=== PATIENT | male | born 1965 | race Caucasian/White ===

== ENCOUNTER 2024-04-25 12:14 | Emergency (ER) | payer MEDICARE, OTHER ==
[~2024-04-25] VITALS: Ht 182.9 cm; Wt 108.9 kg
[2024-04-25] MEDS ORDERED: Tetracaine HCl/Pf 0.5% Opth Soln 4 ml LEFTEYE ONE (12:50)
[2024-04-25] MEDS ORDERED: Fluorescein Sod 1MG Opth Strips LEFTEYE ONE (12:50)
[2024-04-25] MEDS ORDERED: Erythromycin 0.5% Opth Oint 1 gm LEFTEYE ONE (13:45)
== END 2024-04-25 13:56 | disposition home or self-care (01) ==
LOC: ER 12:14
DX: T15.92XA Foreign body on external eye, part unspecified, left eye, initial encounter (principal)
CPT/HCPCS: 99282; A9270